=== PATIENT | female | born 1960 | race Caucasian/White ===

== ENCOUNTER 2020-01-19 18:13 | Emergency (ER) | payer MEDICAID ==
[~2020-01-19] VITALS: Ht 165.1 cm; Wt 90.7 kg
[~2020-01-19 18:13] MED LIST: ALPR1TAB7; AMLO5TAB15; HYDR-2595; METO25TA5; TEMA15CA
[2020-01-19] MEDS ORDERED: LIDOCAINE 1% (LOCAL ANESTH.) PF 5ml SDV ID ONE (18:45)
[2020-01-19] MEDS ORDERED: TETANUS-DIPTH-ACEL PERTUSSIS 0.5ML SYR Tdap IM ONE (18:45)
[2020-01-19 20:15] VITALS: BP 127/82
[2020-01-19] MEDS ORDERED: BACITRACIN TOP OINT 1 UD PKG TOP ONE ×2 (20:45→21:30)
[2020-01-19] MEDS ORDERED: cefTRIAXone W LIDOCAINE 1 GM IM IM ONE ×2 (21:00→21:15)
[2020-01-19] MEDS ORDERED: cefTRIAXone SOD 1,000 MG VL IM ONE (22:00)
== END 2020-01-19 22:55 | disposition home or self-care (01) ==
LOC: ER 18:13
DX: S61.213A Laceration without foreign body of left middle finger without damage to nail, initial encounter (principal); S01.81XA Laceration without foreign body of other part of head, initial encounter; J45.909 Unspecified asthma, uncomplicated; I10 Essential (primary) hypertension; E07.9 Disorder of thyroid, unspecified; Z88.2 Allergy status to sulfonamides; W54.0XXA Bitten by dog, initial encounter; Y93.89 Activity, other specified; Y92.89 Other specified places as the place of occurrence of the external cause; Y99.8 Other external cause status
CPT/HCPCS: 12001; 12011; 73130; 90471; 90715; 96372; 99284; J0696

== ENCOUNTER 2020-03-29 10:55 | Inpatient (IN) | payer OTHER, MEDICAID ==
[~2020-03-29] VITALS: Ht 170.2 cm; Wt 82.1 kg
[2020-03-29] MEDS ORDERED: IBUPROFEN 600 MG TAB PO ONE (11:15)
[2020-03-29] MEDS ORDERED: AZITHROMYCIN 500MG/ 250ML 250 ML IV ONE (11:15)
[2020-03-29] MEDS ORDERED: cefTRIAXone 1GM/50ML D5W 50 ML IV ONE (11:15)
[2020-03-29] MEDS ORDERED: methylPREDNISolone SOD SUCC 125 MG/2 ML VL IV ONE (11:15)
[2020-03-29] MEDS ORDERED: PROCHLORPERAZINE EDISYLATE 5 MG/ML 2ML VIAL IV ONE (11:30)
[2020-03-29 13:13] LABS: Basophils # (auto) 0 10 ^3/uL (0-0.2); Eosinophils # (auto) 0 10 ^3/uL (0-0.8); Lymphocytes # (auto) 0.2 10 ^3/uL (0.4-5.4); Monocytes # (auto) 0 10 ^3/uL (0-1.3); Neutrophils # (auto) 0.5 10 ^3/uL (1.6-8.6)
[2020-03-29 13:16] LABS: Basophils % (auto) 0.4 % (0.0-2.0); Eosinophils % (auto) 0.3 % (0.0-7.0); Hematocrit 34.7 % (36.0-46.0); Hemoglobin 11.9 g/dL (12.2-16.2); Lymphocytes % (auto) 28.1 % (10.0-50.0); Mean Corpuscular Hemoglobin 33.4 pg (28.0-32.0); Mean Corpuscular Hgb Conc. 34.4 g/dL (32.0-36.0); Mean Corpuscular Volume 97.1 fL (80.0-100.0); Monocytes % (auto) 1.2 % (0.0-12.0); Nucleated Red Blood Cells % 0.7 %; Platelet Count (auto) 132 10^3/uL (140-450); Red Blood Cells 3.57 10^6/uL (4.0-5.20); Red Cell Distribution Width 14.5 % (11.8-14.3)
[2020-03-29 13:29] LABS: White Blood Cell 0.7 10^3/uL (4.4-10.8)
[2020-03-29 13:49] LABS: Potassium 3.6 mmol/L (3.5-5.1)
[2020-03-29 13:58] LABS: Albumin 3.2 g/dL (3.4-5.0); BUN/Creatinine Ratio 14.3; Bilirubin, Total 1.7 mg/dL (0.2-1.0); Total Protein 6.5 g/dL (6.4-8.2)
[2020-03-29 14:14] LABS: CRP High Sensitivity 9.37 mg/dL (< 0.3)
[2020-03-29] MEDS ORDERED: FUROSEMIDE 40 MG/4 ML VIAL IV ONE (14:30)
[2020-03-29] MEDS: NOREPINEPHRINE 8 MG/250ML KIT 250 ML IV SCH (14:50)
[2020-03-29 15:08] LABS: Lactic Acid w/Reflex 3.7 mmol/L (0.4-2.0)
[2020-03-29] MEDS ORDERED: ATORVASTATIN 20 MG TAB PO ONE (20:30)
[2020-03-29 21:17] LABS: Hematocrit 33.5 % (36.0-46.0); Hemoglobin 11.4 g/dL (12.2-16.2); Mean Corpuscular Hemoglobin 32.8 pg (28.0-32.0); Mean Corpuscular Hgb Conc. 33.9 g/dL (32.0-36.0); Mean Corpuscular Volume 96.8 fL (80.0-100.0); Platelet Count (auto) 161 10^3/uL (140-450); Red Blood Cells 3.46 10^6/uL (4.0-5.20); Red Cell Distribution Width 14.7 % (11.8-14.3); White Blood Cell 12.7 10^3/uL (4.4-10.8)
[2020-03-29 21:19] LABS: Basophils % (manual) 0 (0.0-2.0); Blast Cells 0; Eosinophils % (manual) 0 (0-7); Metamyelocytes % 0; Myelocytes % 0; Promyelocytes % 0; Reactive Lymphocytes 0
[2020-03-29 21:37] LABS: Lactic Acid w/Reflex 4.4 mmol/L (0.4-2.0)
[2020-03-29 21:44] LABS: Cholesterol 96 mg/dL (< 200)
[2020-03-29 21:47] LABS: HDL Cholesterol 75 mg/dL (40-59); LDL Cholesterol 25 mg/dL (< 100); Triglycerides 103 mg/dL (< 150)
[2020-03-29 22:20] LABS: Band Neutrophils % (manual) 30; Lymphocytes % (manual) 7 (10.0-50.0); Monocytes % (manual) 5 (0-12)
[2020-03-29] MEDS: methylPREDNISolone SOD SUCC 40 MG/ML VL IV SCH (23:19)
[2020-03-29] MEDS: ALPRAZolam 0.5 MG TAB PO PRN (23:20)
[2020-03-29] MEDS: SODIUM CHLORIDE 0.9% 1,000 ML IV SCH (23:20)
[2020-03-29 23:37] LABS: Urine Bacteria NONE SEEN /hpf (None Seen); Urine Blood Negative /uL (Negative); Urine Specific Gravity 1.005 (1.001-1.035); Urine WBC 1 /hpf (0 - 5)
[2020-03-30] VITALS (41 sets, daily range): BP systolic 79–135; BP diastolic 48–89
[2020-03-30] MEDS ORDERED: ALBUTEROL SULF 2.5 MG/0.5ML(0.5%) NEB SOLN NEB ONE
[2020-03-30] MEDS ORDERED: HYDROcodone-ACET 5/325MG TAB PO PRN (01:00)
[2020-03-30] MEDS ORDERED: NITROGLYCERIN 0.4 MG SL TAB SL PRN (01:00)
[2020-03-30] MEDS ORDERED: MORPHINE SULF INJ 2 MG/ML SYRINGE 1ML IV PRN ×2 (01:00)
[2020-03-30] MEDS ORDERED: ENOXAPARIN SOD 80 MG/0.8ML SYRINGE SC ONE (01:30)
[2020-03-30] MEDS: ONDANSETRON HCL 4 MG/2 ML VIAL IV PRN ×2 (01:50→06:50)
[2020-03-30 06:08] LABS: Hematocrit 32.7 % (36.0-46.0); Mean Corpuscular Hemoglobin 32.7 pg (28.0-32.0); Mean Corpuscular Hgb Conc. 33.8 g/dL (32.0-36.0); Platelet Count (auto) 149 10^3/uL (140-450); Red Blood Cells 3.37 10^6/uL (4.0-5.20); Red Cell Distribution Width 14.4 % (11.8-14.3); White Blood Cell 17.6 10^3/uL (4.4-10.8)
[2020-03-30 06:12] LABS: Basophils % (manual) 0 (0.0-2.0); Blast Cells 0; Eosinophils % (manual) 0 (0-7); Metamyelocytes % 0; Promyelocytes % 0; Reactive Lymphocytes 0
[2020-03-30 06:32] LABS: Albumin 2.8 g/dL (3.4-5.0); Calcium 7.8 mg/dL (8.5-10.1); Potassium 3.9 mmol/L (3.5-5.1)
[2020-03-30 06:34] LABS: BUN/Creatinine Ratio 17.4
[2020-03-30 06:37] LABS: Bilirubin, Total 0.6 mg/dL (0.2-1.0); Total Protein 6.2 g/dL (6.4-8.2)
[2020-03-30] MEDS: methylPREDNISolone SOD SUCC 40 MG/ML VL IV SCH ×3 (06:52→21:06)
[2020-03-30] MEDS: SODIUM CHLORIDE 0.9% 1,000 ML IV SCH ×3 (08:25→21:06)
[2020-03-30] MEDS: cefTRIAXone 1GM/50ML D5W 50 ML IV SCH ×2 (08:34→08:43)
[2020-03-30] MEDS: ACETAMINOPHEN 325 MG TAB PO PRN ×2 (09:05→18:07)
[2020-03-30] MEDS ORDERED: ENOXAPARIN SOD 80 MG/0.8ML SYRINGE SC SCH (10:00)
[2020-03-30] MEDS: AZITHROMYCIN 500MG/ 250ML 250 ML IV SCH (10:03)
[2020-03-30] MEDS: HYDROmorphone HCL 2 MG/ML VL IV PRN ×3 (10:05→21:07)
[2020-03-30] MEDS: PANTOPRAZOLE 40 MG TAB PO SCH ×2 (10:06→10:09)
--- NOTE | 2020-03-30 11:37 | NUR ---
ASSUME CARE PATIENT ALERT AND ORIENTED X4. PATIENT COMPLAING OF HEADACHE WHICH SHE WAS MEDICATED WITH TYLENOL PO WITH GOOD RELIEF. ALSO PATIENT COMPLAINED OF GENERALIZED PAIN INCLUDING THE BACK AND FRONT IN WHICH SHE WAS MEDICATED WITH DILAUDID ORDERED BY DR NELSON. IV LEVOPHED IS TITRATED TO HAVE SBP OP OVER 90. OXYGEN INTACT AT 2 LITERS VIA NC SATURATING 94%. DR WYNN CAME AND SAW THE PATIENT WELL DR NELSON. TELEPHONE CALL FOR THE UROLOGIST IN WHICH HE WAS GIVEN INFORMATIONS.
[2020-03-30 12:18] LABS: Lymphocytes % (manual) 4 (10.0-50.0); Monocytes % (manual) 3 (0-12); Myelocytes % 1
[2020-03-30 12:19] LABS: Band Neutrophils % (manual) 24
[2020-03-30] MEDS: NOREPINEPHRINE 8 MG/250ML KIT 250 ML IV SCH (14:30)
--- NOTE | 2020-03-30 18:25 | NUR ---
PATIENT C/O OF HEADACHE WHICH PATIENT GETS RELIEF FROM TYLENOL.
--- NOTE | 2020-03-30 19:45 | NUR ---
OPENING NOTE REPORT RECEIVED FROM RADHA RN. PATIENT IS A/OX4 CONNECTED TO [employer] BEDSIDE MONITORS. HEART RATE IN 80'S, BP IN LOW 100'S AT THIS TIME. PATIENT IS ON 2L NASAL CANNULA SPO2 96%, NO SOB OR RESPIRATORY DISTRESS NOTED. LAST BM TODAY 03/30/20 PER PATIENT. NO DIFFICULTIES WITH VOIDING. RIGHT TRIPLE LUMEN IJ IN PLACE RUNNING NS AT 100ML/HR. RIGHT HAND 22G PERIPHERAL IV IN PLACE. SKIN ALL INTACT, PATIENT ABLE TO TURN AND REPOSITION SELF WITHOUT DIFFICULTIES. POC DISCUSSED WITH PATIENT, ALL QUESTIONS ANSWERED.
--- NOTE | 2020-03-30 21:32 | NUR ---
REPORT CALLED AND GAVE REPORT TO RN RHODA GONZALEZ GIVEN/ALL QUESTIONS ANSWERED. PATIENT WILL BE TRANSFERRED TO ROOM 249A, TELE UNIT. AWAITING TELE BOX BEFORE TRANSFER.
--- NOTE | 2020-03-30 21:38 | NUR ---
TRANSFER TO FLOOR PATIENT TAKEN TO TELE FLOOR VIA WHEELCHAIR. PATIENT TAKEN TO ROOM 249A WITH ALL PERSONAL BELONGINGS AND TELE BOX #1. NO DISTRESS AT TIME OF TRANSFER. JAQUELIN DUONG RECEIVED THE PATIENT.
[2020-03-30] MEDS: BUDESONIDE (INHALATION) 0.5 MG/2 ML NEB NEB SCH (22:00)
--- NOTE | 2020-03-30 22:00 | NUR ---
RECEIVED REPORT AND ASSUMED CARE OF PT AT THIS TIME. PT TRANSFERRED TO ROOM 249-A , TELE STATUS, FROM ICU IN STABLE COND. PT ORIENTED TO ROOM AND PROCEDURES AND POC DISCUSSED WITH PT. PT VERBALIZES UNDERSTANDING. BED IS LOW, WHEELS ARE LOCKED, SIDE UP X2, AND CALL LIGHT IS WITH IN REACH.
[2020-03-30] MEDS: ALPRAZolam 0.5 MG TAB PO PRN (22:58)
[2020-03-31 04:01] VITALS: BP 101/59
[2020-03-31] MEDS: HYDROmorphone HCL 2 MG/ML VL IV PRN ×3 (04:53→22:26)
[2020-03-31 05:40] VITALS: BP 133/85
[2020-03-31] MEDS: ALBUTEROL SULF 2.5 MG/0.5ML(0.5%) NEB SOLN NEB PRN ×2 (06:35→19:03)
[2020-03-31] MEDS: BUDESONIDE (INHALATION) 0.5 MG/2 ML NEB NEB SCH ×2 (06:35→19:03)
[2020-03-31 06:41] LABS: Hematocrit 29.4 % (36.0-46.0); Hemoglobin 9.8 g/dL (12.2-16.2); Mean Corpuscular Hemoglobin 32.5 pg (28.0-32.0); Mean Corpuscular Hgb Conc. 33.3 g/dL (32.0-36.0); Mean Corpuscular Volume 97.7 fL (80.0-100.0); Platelet Count (auto) 102 10^3/uL (140-450); Red Blood Cells 3.01 10^6/uL (4.0-5.20); Red Cell Distribution Width 14.6 % (11.8-14.3); White Blood Cell 12.6 10^3/uL (4.4-10.8)
[2020-03-31] MEDS: methylPREDNISolone SOD SUCC 40 MG/ML VL IV SCH ×3 (06:42→21:53)
[2020-03-31 06:55] LABS: Albumin 2.6 g/dL (3.4-5.0); BUN/Creatinine Ratio 25.9; Calcium 7.7 mg/dL (8.5-10.1); Potassium 4.3 mmol/L (3.5-5.1)
[2020-03-31 06:57] LABS: Bilirubin, Total 0.4 mg/dL (0.2-1.0); Total Protein 6.2 g/dL (6.4-8.2)
[2020-03-31 07:09] LABS: Basophils % (manual) 0 (0.0-2.0); Blast Cells 0; Eosinophils % (manual) 0 (0-7); Metamyelocytes % 0; Promyelocytes % 0; Reactive Lymphocytes 0
--- NOTE | 2020-03-31 07:30 | NUR ---
Opening Shift Note Assumed patient care from NOC RN. Patient currently laying on right side, respirations even and unlabored. Will continue to monitor q1hr and PRN. Call light within reach, safety precautions are in place.
[2020-03-31 09:00] VITALS: BP 128/82
[2020-03-31] MEDS: cefTRIAXone 1GM/50ML D5W 50 ML IV SCH (09:11)
[2020-03-31] MEDS: ENOXAPARIN SOD 80 MG/0.8ML SYRINGE SC SCH ×2 (09:12→21:53)
[2020-03-31] MEDS: AZITHROMYCIN 500MG/ 250ML 250 ML IV SCH (10:44)
[2020-03-31 12:26] LABS: Band Neutrophils % (manual) 22; Lymphocytes % (manual) 2 (10.0-50.0); Monocytes % (manual) 3 (0-12); Myelocytes % 2
[2020-03-31 13:00] VITALS: BP 122/75
[2020-03-31] MEDS: SODIUM CHLORIDE 0.9% 1,000 ML IV SCH ×2 (13:11→22:00)
--- NOTE | 2020-03-31 13:30 | NUR ---
Room Air Patient currently on room air. Respirations even and unlabored RR 18 SpO2 95%. No signs of distress; will continue to monitor q1hr and PRN. Safety precautions in place, call light within reach.
--- NOTE | 2020-03-31 13:50 | NUR ---
at Bedside Dr. Barragan at bedside discussing plan of care with patient.
[2020-03-31 17:00] VITALS: BP 143/96
--- NOTE | 2020-03-31 17:56 | NUR ---
MD Called Spoke with Dr. Peterson regarding patient complaint of diarrhea and allergies. Patient is complaining of sneezing and runny nose. New orders received, will carry out.
[2020-03-31] MEDS ORDERED: LORATADINE 10 MG TAB PO ONE (18:00)
[2020-03-31] MEDS ORDERED: PROMETHAZINE HCL 25 MG/ML 1ML IV PRN (18:00)
--- NOTE | 2020-03-31 18:13 | NUR ---
Dressing Change Dressing change to right IJ 3lumen using sterile technique. Addendum: 03/31/20 at 1817 by BALA ALONZO RN RN IV is patent: flushes easily, blood return noted on aspiration.
--- NOTE | 2020-03-31 18:53 | NUR ---
at Bedside Dr. Lima at bedside discussing plan of care with patient.
[2020-03-31] MEDS: ALPRAZolam 0.5 MG TAB PO PRN (19:40)
--- NOTE | 2020-03-31 19:45 | NUR ---
Opening Shift Note Assumed care of patient, awake and alert, oriented x 4, follows direction. On room air with even and unlabored respirations. No S/S of distress/SOB or pain. Patient ambulates to bathroom with steady gait. Patient denies any problems voiding. IV intact and patent infusing IVF per orders. Bed in low locked position with side rails up x 2 and call light within reach. Instructed on POC and to call for assist PRN, will continue to monitor for changes Q1hr and PRN.
[2020-03-31 23:44] VITALS: BP 135/84
[2020-04-01 05:39] VITALS: BP 134/83
[2020-04-01] MEDS: methylPREDNISolone SOD SUCC 40 MG/ML VL IV SCH (06:02)
[2020-04-01] MEDS: SODIUM CHLORIDE 0.9% 1,000 ML IV SCH ×2 (06:03→18:00)
[2020-04-01] MEDS: ALBUTEROL SULF 2.5 MG/0.5ML(0.5%) NEB SOLN NEB PRN (06:32)
[2020-04-01] MEDS: BUDESONIDE (INHALATION) 0.5 MG/2 ML NEB NEB SCH ×2 (06:33→18:35)
[2020-04-01 06:40] LABS: Hematocrit 30.1 % (36.0-46.0); Mean Corpuscular Hemoglobin 32.3 pg (28.0-32.0); Mean Corpuscular Hgb Conc. 33.4 g/dL (32.0-36.0); Mean Corpuscular Volume 96.9 fL (80.0-100.0); Platelet Count (auto) 95 10^3/uL (140-450); Red Cell Distribution Width 14.6 % (11.8-14.3); White Blood Cell 14.1 10^3/uL (4.4-10.8)
--- NOTE | 2020-04-01 06:56 | NUR ---
Closing Note status unchanged. patient resting in bed on room air with even and unlabored respirations, no s/s of distress or SOB. Bed in lowest locked position with side rails up x 2 and call light within reach.
[2020-04-01 07:02] LABS: Band Neutrophils % (manual) 0; Basophils % (manual) 0 (0.0-2.0); Blast Cells 0; Eosinophils % (manual) 0 (0-7); Metamyelocytes % 0; Myelocytes % 0; Promyelocytes % 0; Reactive Lymphocytes 0
[2020-04-01 07:03] LABS: Albumin 2.4 g/dL (3.4-5.0); Calcium 8.3 mg/dL (8.5-10.1); Potassium 4.4 mmol/L (3.5-5.1)
[2020-04-01 07:08] LABS: BUN/Creatinine Ratio 23.6; Bilirubin, Total 0.3 mg/dL (0.2-1.0); Total Protein 6.1 g/dL (6.4-8.2)
--- NOTE | 2020-04-01 07:15 | NUR ---
Closing Shift Note Endorsed patient care to NOC RN. Patient currently sitting up in bed, AOx4. Respirations even and unlabored. No signs of distress at this time. Safety precautions are in place.
--- NOTE | 2020-04-01 07:30 | NUR ---
Opening Shift Note Assumed patient care from NOC RN. Patient currently laying on left side with eyes closed, respirations are even and unlabored. Safety precautions in place. Call light within reach. Will continue to monitor.
[2020-04-01 07:42] LABS: Lymphocytes % (manual) 2 (10.0-50.0); Monocytes % (manual) 3 (0-12)
--- NOTE | 2020-04-01 08:47 | NUR ---
NM Called NM regarding VQ and Renal Scan. Per Paul, patient will have Renal Scan at approximately 10-11. Patient does not need to be kept NPO at this time.
[2020-04-01 09:00] VITALS: BP 144/82
[2020-04-01] MEDS: cefTRIAXone 1GM/50ML D5W 50 ML IV SCH (09:16)
[2020-04-01] MEDS: PANTOPRAZOLE 40 MG TAB PO SCH (09:17)
[2020-04-01] MEDS ORDERED: LORATADINE 10 MG TAB PO SCH (10:00)
[2020-04-01] MEDS: ENOXAPARIN SOD 80 MG/0.8ML SYRINGE SC SCH (10:00)
[2020-04-01 10:11] LABS: Hepatitis B Surface Antibody Negative
[2020-04-01] MEDS: HYDROmorphone HCL 2 MG/ML VL IV PRN ×3 (10:16→22:36)
[2020-04-01] MEDS: AZITHROMYCIN 500MG/ 250ML 250 ML IV SCH (10:17)
[2020-04-01 10:44] LABS: Hepatitis A Total Antibody Negative
--- NOTE | 2020-04-01 11:15 | NUR ---
at Bedside Dr. Bowie at bedside discussing plan of care with patient. Patient to undergo renal scan per urology. New orders received. MD aware of medication held, see EMAR.
--- NOTE | 2020-04-01 11:21 | NUR ---
TIFFANY Spoke with TIFFANY Miller. Per CLEMENTE Miller scan completed prior to cancellation. Will attempt renal scan later today, if unable, will complete renal scan tomorrow. Dr. Azeb whitman.
[2020-04-01] MEDS: IPRATROPIUM BROM 0.5 MG/2.5ML INH SOL NEB SCH ×2 (11:51→18:35)
[2020-04-01] MEDS: ALBUTEROL SULF 2.5 MG/0.5ML(0.5%) NEB SOLN NEB SCH ×2 (11:51→18:35)
[2020-04-01 13:00] VITALS: BP 160/94
--- NOTE | 2020-04-01 13:42 | NUR ---
1340 04/01/20 I faxed transfer order and Notice Regarding Post Stabilization to [facility]-documents scanned into [employer]. I faxed today's MD progress notes to [facility].
[2020-04-01 13:51] LABS: Hepatitis B Core Total AB Negative; Hepatitis B Surface Antigen Negative (Negative); Hepatitis C Antibody Negative (Negative)
--- NOTE | 2020-04-01 13:54 | NUR ---
1350 04/01/20 I received a call from [employer] Technical Advisor Anu [phone]-she provided me with inpatient authorization number [id number] for 48 hours from admission. I made her aware that I had faxed a transfer order and today's MD progress notes-she said she will start working on the transfer.
--- NOTE | 2020-04-01 15:00 | NUR ---
Ronald Received call from Anu. Adam Brennan, currently working on obtaining bed for transfer. Per Anu, call with any questions [phone]
[2020-04-01 17:00] VITALS: BP 137/91
--- NOTE | 2020-04-01 20:00 | NUR ---
[facility] Transfer patient going to room 1202. phone number for report [phone]. 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 spoke with lorri ga [phone], accepting MD Kirk Senior.
--- NOTE | 2020-04-01 20:05 | NUR ---
Informed patient of transfer patient verbalized understanding, she states she will call her mother Meaghan to inform her of transfer.
--- NOTE | 2020-04-01 20:42 | NUR ---
Called [facility]. Report given to Isis HAMMER.
[2020-04-01] MEDS: ALPRAZolam 0.5 MG TAB PO PRN (20:57)
--- NOTE | 2020-04-01 22:35 | NUR ---
Called Anu Cardenas CM, patient refusing to go to [facility] per Anu GUERRIER, no bed available in [place], as of today the patient will be financially responsible for the hospital bill if she refuses. Spoke with patient regarding this matter, patient agrees to go to [facility]. [facility] at bedside for transportation.
--- NOTE | 2020-04-01 22:50 | NUR ---
Pt being trans to another hosp Order obtained for transfer of BREEZY PRESLEY to [facility]. Report called/given to LAURA HAMMER. Report given to EMS transport team. Medication reconciliation form completed and copy given to patient. Transported via [facility] along with copied chart and imaging films/disk and all personal belongings. No distress noted on time of departure. Family notified of destination and room number, verbalized understanding. NOTE:
== END 2020-04-01 22:50 | disposition short-term general hospital (02) | DRG 871 ==
LOC: ER 10:55 → EDBD 10:55 → TELE 10:56 → ICU WEST 03-30 03:00 → TELE-EAST 03-30 19:55
PROVIDERS: ADMIT Internal Medicine; ATTEND Internal Medicine
PROC: 02HV33Z Insertion of Infusion Device into Superior Vena Cava, Percutaneous Approach (ICD-10-PCS; principal; 2020-03-29)
PROC: 4A143B0 Monitoring of Venous Pressure, Central, Percutaneous Approach (ICD-10-PCS; 2020-03-29)
DX: A41.9 Sepsis, unspecified organism (principal); R65.21 Severe sepsis with septic shock; I50.33 Acute on chronic diastolic (congestive) heart failure; J96.01 Acute respiratory failure with hypoxia; N17.0 Acute kidney failure with tubular necrosis; I21.4 Non-ST elevation (NSTEMI) myocardial infarction; D61.818 Other pancytopenia; I13.0 Hypertensive heart and chronic kidney disease with heart failure and stage 1 through stage 4 chronic kidney disease, or unspecified chronic kidney disease; J98.11 Atelectasis; N13.6 Pyonephrosis; J45.901 Unspecified asthma with (acute) exacerbation; F41.9 Anxiety disorder, unspecified; N18.30 Chronic kidney disease, stage 3 unspecified; J44.9 Chronic obstructive pulmonary disease, unspecified; Z20.828 Contact with and (suspected) exposure to other viral communicable diseases; R19.5 Other fecal abnormalities; M54.5 Low back pain; F32.9 Major depressive disorder, single episode, unspecified; G89.29 Other chronic pain; Z91.5 Personal history of self-harm; Z83.3 Family history of diabetes mellitus; Z82.49 Family history of ischemic heart disease and other diseases of the circulatory system; Z80.51 Family history of malignant neoplasm of kidney; Z86.74 Personal history of sudden cardiac arrest; Z90.710 Acquired absence of both cervix and uterus; Z88.2 Allergy status to sulfonamides; Z90.49 Acquired absence of other specified parts of digestive tract; Z98.51 Tubal ligation status
CPT/HCPCS: 36415; 71045; 71250; 74176; 76700; 78582; 80053; 80061; 81001; 82270; 82728; 83605; 83615; 84484; 85007; 85025; 85027; 85379; 86141; 86704; 86706; 86708; 86803; 87040; 87045; 87081; 87086; 87177; 87340; 87426; 87427; 93306; 93970; 94640; 96365; 96368; 96372; 96375; 96376; 99291; G0378; J0696; J2405

== ENCOUNTER 2020-04-06 15:33 | Emergency (ER) | payer OTHER, MEDICAID ==
[~2020-04-06] VITALS: Ht 167.6 cm; Wt 81.6 kg
[2020-04-06 17:50] LABS: Urine Amorphous Crystal FEW /hpf (None Seen); Urine Bacteria MOD /hpf (None Seen); Urine Blood 3+ /uL (Negative); Urine Specific Gravity 1.017 (1.001-1.035); Urine WBC 1282 /hpf (0 - 5); Urine WBC Clumps PRESENT /hpf (None Seen)
[2020-04-06 18:13] LABS: Alcohol, Urine < 3.0 mg/dL (0-10); Amphetamine Screen, Urine NEGATIVE (NEGATIVE); Barbiturate Scree,Urine NEGATIVE (NEGATIVE); Benzodiazephine Screen, Urine NEGATIVE (NEGATIVE); Cannabinoid Screen, Urine NEGATIVE (NEGATIVE); Cocaine Screen, Urine NEGATIVE (NEGATIVE); Opiate Scree,Urine NEGATIVE (NEGATIVE); Phencyclidine Screen, Urine NEGATIVE (NEGATIVE)
[2020-04-06 18:29] LABS: Hematocrit 31.3 % (36.0-46.0); Hemoglobin 10.8 g/dL (12.2-16.2); Mean Corpuscular Hemoglobin 33.1 pg (28.0-32.0); Mean Corpuscular Hgb Conc. 34.5 g/dL (32.0-36.0); Mean Corpuscular Volume 96.2 fL (80.0-100.0); Platelet Count (auto) 328 10^3/uL (140-450); Red Blood Cells 3.25 10^6/uL (4.0-5.20); Red Cell Distribution Width 14.9 % (11.8-14.3); White Blood Cell 7.4 10^3/uL (4.4-10.8)
[2020-04-06 18:42] LABS: Basophils % (manual) 0 (0.0-2.0); Blast Cells 0; Eosinophils % (manual) 0 (0-7); Metamyelocytes % 0; Myelocytes % 0; Promyelocytes % 0; Reactive Lymphocytes 0
[2020-04-06 18:48] LABS: INR 0.88 (0.9-1.15); Partial Thromboplastin Time 24.8 sec (23.0-31.2)
[2020-04-06 18:49] LABS: Albumin 2.5 g/dL (3.4-5.0); Calcium 8.4 mg/dL (8.5-10.1)
[2020-04-06 18:53] LABS: BUN/Creatinine Ratio 17.4; Bilirubin, Total 0.3 mg/dL (0.2-1.0)
[2020-04-06] MEDS ORDERED: CIPROFLOXACIN 400MG/200ML 200 ML IV ONE (19:15)
[2020-04-06] MEDS ORDERED: SODIUM CHLORIDE 0.9% 1,000 ML IV ONE (19:15)
[2020-04-06] MEDS ORDERED: PANTOPRAZOLE 40 MG/10 ML VIAL INJ IV ONE (19:15)
[2020-04-06] MEDS ORDERED: cefTRIAXone 1GM/50ML D5W 50 ML IV ONE (19:15)
[2020-04-06 20:01] LABS: Band Neutrophils % (manual) 1; Lymphocytes % (manual) 12 (10.0-50.0); Monocytes % (manual) 5 (0-12)
[2020-04-06] MEDS ORDERED: ACETAMINOPHEN/CODEINE#3 (300/30mg) TAB PO ONE (20:15)
[2020-04-06] MEDS ORDERED: HYDROcodone-ACET 10/325MG TAB PO ONE (20:30)
[2020-04-06 21:41] VITALS: BP 111/64
== END 2020-04-06 21:47 | disposition home or self-care (01) ==
LOC: ER 15:36
DX: N39.0 Urinary tract infection, site not specified (principal); E86.0 Dehydration; N13.30 Unspecified hydronephrosis; I12.9 Hypertensive chronic kidney disease with stage 1 through stage 4 chronic kidney disease, or unspecified chronic kidney disease; N18.30 Chronic kidney disease, stage 3 unspecified; D63.1 Anemia in chronic kidney disease; Z90.49 Acquired absence of other specified parts of digestive tract; Z90.710 Acquired absence of both cervix and uterus
CPT/HCPCS: 36415; 74176; 80053; 80307; 81001; 83605; 84484; 85007; 85027; 85610; 85730; 96365; 96368; 96375; 99284; C9113; J0696; J0744; J7030; 96361

== ENCOUNTER 2020-12-17 07:11 | Emergency (ER) | payer MEDICAID, OTHER ==
[~2020-12-17] VITALS: Ht 167.6 cm; Wt 77.1 kg
[~2020-12-17 07:11] MED LIST changes: +AMLO-489; -AMLO5TAB15
[2020-12-17 07:30] VITALS: BP 123/79
== END 2020-12-17 07:30 | disposition left against medical advice (07) ==
LOC: EDBD 07:11 → ER 07:25
DX: G89.4 Chronic pain syndrome (principal); F41.9 Anxiety disorder, unspecified; J45.909 Unspecified asthma, uncomplicated; I12.9 Hypertensive chronic kidney disease with stage 1 through stage 4 chronic kidney disease, or unspecified chronic kidney disease; N18.9 Chronic kidney disease, unspecified; Z86.2 Personal history of diseases of the blood and blood-forming organs and certain disorders involving the immune mechanism; Z90.89 Acquired absence of other organs; Z90.49 Acquired absence of other specified parts of digestive tract; Z90.710 Acquired absence of both cervix and uterus; Z79.899 Other long term (current) drug therapy; Z88.2 Allergy status to sulfonamides

== ENCOUNTER 2023-11-23 10:21 | Inpatient (IN) | payer OTHER, MEDICAID ==
[~2023-11-23] VITALS: Ht 165.1 cm; Wt 80.0 kg
[~2023-11-23 10:21] MED LIST changes: -AMLO-489; +AMLO1TAB22; +ENOXAPARIN SOD 80 MG/0.8ML SYRINGE SC SCH
[2023-11-23] MEDS: NALOXONE HCL 1MG/ML 2ML SYRINGE IV ONE (10:30)
[2023-11-23] MEDS: SODIUM CHLORIDE 0.9% 1,000 ML IV ONE (11:00)
[2023-11-23 11:17] LABS: Basophils # (auto) 0.1 10 ^3/uL (0-0.2); Basophils % (auto) 0.5 % (0.0-2.0); Eosinophils # (auto) 0 10 ^3/uL (0-0.8); Hematocrit 36.8 % (36.0-46.0); Hemoglobin 12.2 g/dL (12.2-16.2); Lymphocytes # (auto) 0.9 10 ^3/uL (0.4-5.4); Lymphocytes % (auto) 7.4 % (10.0-50.0); Mean Corpuscular Hemoglobin 30.5 pg (28.0-32.0); Mean Corpuscular Hgb Conc. 33.2 g/dL (32.0-36.0); Mean Corpuscular Volume 91.9 fL (80.0-100.0); Monocytes # (auto) 0.4 10 ^3/uL (0-1.3); Monocytes % (auto) 3.3 % (0.0-12.0); Neutrophils # (auto) 11.1 10 ^3/uL (1.6-8.6); Neutrophils % (auto) 88.8 % (37.0-80.0); Nucleated Red Blood Cells % 0.1 %; Red Blood Cells 4.01 10^6/uL (4.0-5.20); Red Cell Distribution Width 14.1 % (11.8-14.3); White Blood Cell 12.5 10^3/uL (4.4-10.8)
[2023-11-23 11:18] VITALS: PULSE 81; RESP 16; O2SAT 95
[2023-11-23 11:35] LABS: Alanine Aminotransferase 24 U/L (7-40); Albumin 4.8 g/dL (3.2-4.8); Alkaline Phosphatase 115 U/L (46-116); Anion Gap 9 (5-15); Aspartate Aminotransferase 17 U/L (13-40); Bilirubin, Total 0.7 mg/dL (0.2-1.0); Blood Alcohol < 3.0 mg/dL (<10); Blood Urea Nitrogen 18 mg/dL (9-23); Calcium 10.1 mg/dL (8.5-10.1); Carbon Dioxide 24 mmol/L (20-30); Chloride 111 mmol/L (98-107); Creatine Kinase IFCC 91 U/L (34-145); Glucose 179 mg/dL (74-106); Potassium 3.9 mmol/L (3.5-5.1); Sodium 144 mmol/L (136-145); Total Protein 7.3 g/dL (5.7-8.2)
[2023-11-23 11:36] LABS: Acetaminophen < 2.0 UG/ML (10.0-20.0)
[2023-11-23 11:40] LABS: Salicylate < 3.0 mg/dL (2.8-20.0)
[2023-11-23 12:25] LABS: Lipase 20 U/L (12-53)
[2023-11-23] MEDS: ASPirin 325 MG TAB PO ONE (13:36)
[2023-11-23] MEDS ORDERED: ONDANSETRON HCL 4 MG/2 ML VIAL IV PRN (14:00)
[2023-11-23] MEDS ORDERED: hydrALAZINE HCL 20 MG/ML VL IV PRN (14:00)
[2023-11-23] MEDS: SODIUM CHLOR 0.9% PF (SALINE LOCK) 10ML VIAL/SYR IV SCH (14:00)
[2023-11-23] MEDS ORDERED: DOCUSATE SOD 100 MG CAP PO PRN (14:00)
[2023-11-23] MEDS ORDERED: MORPHINE SULFATE INJ 2 MG/ml SYRG IV PRN (14:30)
[2023-11-23] MEDS ORDERED: NITROGLYCERIN 0.4 MG SL TAB SL PRN (14:30)
[2023-11-23] MEDS: cefTRIAXone 1GM/50ML D5W 50 ML IV ONE (14:33)
[2023-11-23] MEDS: FUROSEMIDE 40 MG/4 ML VIAL IV ONE (14:34)
[2023-11-23] MEDS: HYDROcodone-ACET 5/325MG TAB PO PRN (14:47)
[2023-11-23 15:45] LABS: Urine Bacteria MOD /hpf (None Seen); Urine Blood TRACE /uL (Negative); Urine Clarity Turbid (Clear); Urine Color Yellow (Yellow); Urine Mucus FEW (None Seen); Urine Protein, UAD 1+ (Negative); Urine Urobilinogen Normal (Negative); Urine WBC 86 /hpf (0 - 5)
[2023-11-23 16:15] LABS: Amphetamine Screen, Urine Neg (NEGATIVE); Barbiturate Scree,Urine Neg (NEGATIVE); Benzodiazephine Screen, Urine Neg (NEGATIVE); Cannabinoid Screen, Urine Neg (NEGATIVE); Cocaine Screen, Urine Neg (NEGATIVE); Opiate Scree,Urine Neg (NEGATIVE); Phencyclidine Screen, Urine Neg (NEGATIVE)
[2023-11-23] MEDS: ENOXAPARIN SOD 80 MG/0.8ML SYRINGE SC SCH (18:27)
[2023-11-23 19:30] VITALS: PULSE 83; RESP 20; O2SAT 95
[2023-11-23] MEDS: LORazepam 2MG/ML-1ML VIAL IV PRN (20:45)
[2023-11-23] MEDS: CARVEDILOL 12.5 MG TAB PO SCH (21:59)
[2023-11-23] MEDS: ATORVASTATIN 20 MG TAB PO SCH (22:00)
[2023-11-23 22:53] VITALS: BP_SYST 143; BP_SYST 150; BP_DIAS 78; BP_DIAS 89; PULSE 84; PULSE 94; RESP 17; RESP 18; TEMP 97.8; TEMP 98.7; O2SAT 94
[2023-11-23 23:15] VITALS: BP 150/85; PULSE 88; RESP 17; TEMP 98.1; O2SAT 96
[2023-11-24] VITALS (8 sets, daily range): BP systolic 128–161; BP diastolic 79–93; PULSE 56–92; RESP 12–20; TEMP 98–98.5; O2SAT 93–98
[2023-11-24 05:37] LABS: Basophils # (auto) 0 10 ^3/uL (0-0.2); Basophils % (auto) 0.4 % (0.0-2.0); Eosinophils # (auto) 0 10 ^3/uL (0-0.8); Eosinophils % (auto) 0.1 % (0.0-7.0); Hematocrit 32.9 % (36.0-46.0); Lymphocytes # (auto) 1.5 10 ^3/uL (0.4-5.4); Lymphocytes % (auto) 17.7 % (10.0-50.0); Mean Corpuscular Hemoglobin 30.9 pg (28.0-32.0); Mean Corpuscular Hgb Conc. 33.5 g/dL (32.0-36.0); Mean Corpuscular Volume 92.1 fL (80.0-100.0); Monocytes # (auto) 0.6 10 ^3/uL (0-1.3); Neutrophils # (auto) 6.2 10 ^3/uL (1.6-8.6); Neutrophils % (auto) 74.8 % (37.0-80.0); Nucleated Red Blood Cells % 0.1 %; Red Blood Cells 3.58 10^6/uL (4.0-5.20); Red Cell Distribution Width 13.5 % (11.8-14.3); White Blood Cell 8.3 10^3/uL (4.4-10.8)
[2023-11-24 05:58] LABS: Alanine Aminotransferase 19 U/L (7-40); Alkaline Phosphatase 90 U/L (46-116); Anion Gap 10 (5-15); Aspartate Aminotransferase 18 U/L (13-40); Bilirubin, Total 0.6 mg/dL (0.2-1.0); Blood Urea Nitrogen 15 mg/dL (9-23); Calcium 9.8 mg/dL (8.7-10.4); Carbon Dioxide 24 mmol/L (20-30); Chloride 111 mmol/L (98-107); Glucose 125 mg/dL (74-106); Potassium 3.4 mmol/L (3.5-5.1); Sodium 145 mmol/L (136-145); Total Protein 6.3 g/dL (5.7-8.2)
[2023-11-24] MEDS: ENOXAPARIN SOD 80 MG/0.8ML SYRINGE SC SCH (06:00)
[2023-11-24] MEDS ORDERED: LISI10TA34 PO (08:47)
[2023-11-24] MEDS ORDERED: QUET50TA27 PO (08:47)
[2023-11-24] MEDS ORDERED: OXYC-963 (08:47)
[2023-11-24] MEDS ORDERED: LEVO25TA6 PO (08:47)
[2023-11-24] MEDS ORDERED: SERT-289 PO (08:47)
[2023-11-24] MEDS ORDERED: GABA-1250 PO (08:47)
[2023-11-24] MEDS ORDERED: OMEP-448 (08:47)
[2023-11-24] MEDS ORDERED: amLODIPine BESYLATE 5 MG TAB PO SCH (10:00)
[2023-11-24] MEDS: cefTRIAXone 1GM/50ML D5W 50 ML IV SCH (10:01)
[2023-11-24] MEDS: ASPirin 81 mg TAB PO SCH (10:01)
[2023-11-24] MEDS: NIFEdipine ER 30 MG TAB PO SCH (10:02)
[2023-11-24] MEDS: FUROSEMIDE 40 MG/4 ML VIAL IV SCH (10:03)
[2023-11-24] MEDS: POTASSIUM CHL 20MEQ/100ML 100 ML IV SCH (11:45)
[2023-11-24] MEDS: ACETAMINOPHEN 325 MG TAB PO PRN (12:06)
[2023-11-24] MEDS: OXYCODONE W/ ACETAMINOPHEN 5/325MG TABLET PO PRN (16:49)
[2023-11-24] MEDS: POTASSIUM CHL 20 Meq TABLET PO ONE (16:49)
[2023-11-24] MEDS: QUEtiapine FUMARATE 25 MG TAB PO SCH (22:16)
[2023-11-24] MEDS: GABAPENTIN 300 MG CAP PO SCH (22:18)
[2023-11-25] VITALS (8 sets, daily range): BP systolic 108–139; BP diastolic 65–86; PULSE 56–80; RESP 16–18; TEMP 97.8–98.7; O2SAT 93–98
[2023-11-25] MEDS: LEVOTHYROXINE SODIUM 25 MCG TAB PO SCH (06:10)
[2023-11-25 07:01] LABS: Chloride 105 mmol/L (98-107); Potassium 3.3 mmol/L (3.5-5.1); Sodium 140 mmol/L (136-145)
[2023-11-25 07:02] LABS: Anion Gap 9 (5-15); Calcium 9.2 mg/dL (8.5-10.1); Carbon Dioxide 26 mmol/L (20-30)
[2023-11-25 07:07] LABS: BUN/Creatinine Ratio 12.6 (10.0-20.0); Blood Urea Nitrogen 11 mg/dL (9-23); Glucose 107 mg/dL (74-106)
[2023-11-25 07:21] LABS: Basophils # (auto) 0 10 ^3/uL (0-0.2); Basophils % (auto) 0.7 % (0.0-2.0); Eosinophils # (auto) 0 10 ^3/uL (0-0.8); Eosinophils % (auto) 0.4 % (0.0-7.0); Hematocrit 33.2 % (36.0-46.0); Hemoglobin 11.1 g/dL (12.2-16.2); Lymphocytes # (auto) 2.1 10 ^3/uL (0.4-5.4); Lymphocytes % (auto) 35.4 % (10.0-50.0); Mean Corpuscular Hemoglobin 30.5 pg (28.0-32.0); Mean Corpuscular Hgb Conc. 33.4 g/dL (32.0-36.0); Mean Corpuscular Volume 91.3 fL (80.0-100.0); Monocytes # (auto) 0.5 10 ^3/uL (0-1.3); Monocytes % (auto) 8.1 % (0.0-12.0); Neutrophils # (auto) 3.3 10 ^3/uL (1.6-8.6); Neutrophils % (auto) 55.4 % (37.0-80.0); Nucleated Red Blood Cells % 0.1 %; Red Blood Cells 3.64 10^6/uL (4.0-5.20); Red Cell Distribution Width 13.3 % (11.8-14.3)
[2023-11-25] MEDS: ENOXAPARIN SOD 40 MG/0.4 ML SYRINGE SC SCH (09:10)
[2023-11-25] MEDS: SERTRALINE HCL 50 MG TAB PO SCH (09:11)
[2023-11-25] MEDS: POTASSIUM CHL 20 Meq TABLET PO ONE (10:16)
[2023-11-26 01:43] VITALS: BP 97/58; PULSE 54; RESP 17; TEMP 98.2; O2SAT 96
[2023-11-26 06:50] LABS: Basophils # (auto) 0.1 10 ^3/uL (0-0.2); Basophils % (auto) 1.3 % (0.0-2.0); Eosinophils # (auto) 0.1 10 ^3/uL (0-0.8); Eosinophils % (auto) 1.9 % (0.0-7.0); Hematocrit 39.7 % (36.0-46.0); Hemoglobin 13.4 g/dL (12.2-16.2); Lymphocytes # (auto) 2.5 10 ^3/uL (0.4-5.4); Lymphocytes % (auto) 43.5 % (10.0-50.0); Mean Corpuscular Hemoglobin 30.7 pg (28.0-32.0); Mean Corpuscular Hgb Conc. 33.6 g/dL (32.0-36.0); Mean Corpuscular Volume 91.4 fL (80.0-100.0); Monocytes # (auto) 0.5 10 ^3/uL (0-1.3); Neutrophils # (auto) 2.6 10 ^3/uL (1.6-8.6); Neutrophils % (auto) 44.3 % (37.0-80.0); Nucleated Red Blood Cells % 0.2 %; Red Blood Cells 4.35 10^6/uL (4.0-5.20); Red Cell Distribution Width 13.4 % (11.8-14.3); White Blood Cell 5.9 10^3/uL (4.4-10.8)
[2023-11-26 06:59] LABS: Alanine Aminotransferase 15 U/L (7-40); Albumin 4.4 g/dL (3.2-4.8); Alkaline Phosphatase 96 U/L (46-116); Anion Gap 8 (5-15); Aspartate Aminotransferase 11 U/L (13-40); BUN/Creatinine Ratio 18.3 (10.0-20.0); Blood Urea Nitrogen 17 mg/dL (9-23); Calcium 9.6 mg/dL (8.5-10.1); Carbon Dioxide 26 mmol/L (20-30); Chloride 107 mmol/L (98-107); Glucose 116 mg/dL (74-106); LDL Cholesterol 92 mg/dL (< 100); Magnesium 1.7 mg/dL (1.6-2.6); Potassium 3.8 mmol/L (3.5-5.1); Sodium 141 mmol/L (136-145); Triglycerides 159 mg/dL (< 150)
[2023-11-26 07:00] LABS: Bilirubin, Total 0.6 mg/dL (0.2-1.0); Cholesterol 160 mg/dL (< 200); HDL Cholesterol 46 mg/dL (40-59); Total Protein 6.8 g/dL (5.7-8.2)
[2023-11-26 08:00] VITALS: PULSE 58; PULSE 64; RESP 19; O2SAT 92
[2023-11-26 09:00] VITALS: BP 121/81; PULSE 69; RESP 19; TEMP 98.3; O2SAT 92
[2023-11-26 13:00] VITALS: BP 127/66; PULSE 70; RESP 17; TEMP 98.6; O2SAT 97
[2023-11-26] MEDS ORDERED: ASPI-325 PO (15:57)
[2023-11-26] MEDS ORDERED: CARV-216 PO (15:57)
[2023-11-26] MEDS ORDERED: ATOR20TA PO (15:57)
[2023-11-26] MEDS ORDERED: CEPH500C PO (16:00)
[2023-11-26 16:43] VITALS: BP 127/66; PULSE 70
[2023-11-26 17:00] VITALS: BP 145/94; PULSE 64; RESP 19; TEMP 97.7; O2SAT 93
== END 2023-11-26 17:55 | disposition home or self-care (01) | DRG 871 ==
LOC: ER 10:21 → TELE 14:31 → TELE-WESTW 23:15
PROVIDERS: ADMIT Nurse Practitioner Family; ATTEND Internal Medicine Geriatric Medicine
DX: A41.9 Sepsis, unspecified organism (principal); I21.A1 Myocardial infarction type 2; I50.43 Acute on chronic combined systolic (congestive) and diastolic (congestive) heart failure; N39.0 Urinary tract infection, site not specified; I11.0 Hypertensive heart disease with heart failure; I25.10 Atherosclerotic heart disease of native coronary artery without angina pectoris; D64.9 Anemia, unspecified; E66.9 Obesity, unspecified; E87.6 Hypokalemia; R73.9 Hyperglycemia, unspecified; E78.5 Hyperlipidemia, unspecified; E03.9 Hypothyroidism, unspecified; J44.89 Other specified chronic obstructive pulmonary disease; F32.A Depression, unspecified; F41.9 Anxiety disorder, unspecified; E86.0 Dehydration; Z90.710 Acquired absence of both cervix and uterus; Z98.61 Coronary angioplasty status; Z80.51 Family history of malignant neoplasm of kidney; Z82.49 Family history of ischemic heart disease and other diseases of the circulatory system; Z83.3 Family history of diabetes mellitus; Z68.29 Body mass index [BMI] 29.0-29.9, adult
CPT/HCPCS: 36415; 70450; 71045; 80048; 80053; 80061; 80307; 80320; 80329; 81001; 82140; 82550; 83036; 83605; 83690; 83735; 83880; 84443; 84484; 85025; 93005; 93306; 96361; 96365; 96375; 99291; G0378

== ENCOUNTER 2024-04-13 21:57 | Emergency (ER) | payer OTHER, MEDICAID ==
[~2024-04-13] VITALS: Ht 167.6 cm; Wt 81.0 kg
[~2024-04-13 21:57] MED LIST changes: -ALPR1TAB7; +ASPI-325 PO; +ATOR20TA PO; +CARV-216 PO; +CEPH500C PO; -ENOXAPARIN SOD 80 MG/0.8ML SYRINGE SC SCH; +GABA-1250 PO; -HYDR-2595; +LEVO25TA6 PO; +LISI10TA34 PO; -METO25TA5; +OMEP-448; +OXYC-963; +QUET50TA27 PO; +SERT-289 PO; -TEMA15CA
[2024-04-13 22:53] LABS: Urine Bacteria None Seen /hpf (None Seen)
[2024-04-13 22:55] LABS: Basophils # (auto) 0.1 10 ^3/uL (0-0.2); Basophils % (auto) 0.7 % (0.0-2.0); Eosinophils # (auto) 0 10 ^3/uL (0-0.8); Eosinophils % (auto) 0.5 % (0.0-7.0); Hematocrit 36.4 % (36.0-46.0); Hemoglobin 12.4 g/dL (12.2-16.2); Lymphocytes # (auto) 1.3 10 ^3/uL (0.4-5.4); Lymphocytes % (auto) 16.9 % (10.0-50.0); Mean Corpuscular Hemoglobin 31.6 pg (28.0-32.0); Mean Corpuscular Hgb Conc. 34.2 g/dL (32.0-36.0); Mean Corpuscular Volume 92.4 fL (80.0-100.0); Monocytes # (auto) 0.4 10 ^3/uL (0-1.3); Monocytes % (auto) 5.5 % (0.0-12.0); Neutrophils % (auto) 76.4 % (37.0-80.0); Platelet Count (auto) 305 10^3/uL (140-450); Red Blood Cells 3.94 10^6/uL (4.0-5.20); Red Cell Distribution Width 14.1 % (11.8-14.3); White Blood Cell 7.8 10^3/uL (4.4-10.8)
[2024-04-13 23:07] LABS: Urine Blood TRACE /uL (Negative); Urine Clarity Clear (Clear); Urine Color Yellow (Yellow); Urine Hyaline Cast FEW /lpf (0 - 2); Urine Mucus FEW (None Seen); Urine Protein, UAD 1+ (Negative); Urine Specific Gravity 1.033 (1.001-1.035); Urine Urobilinogen Normal (Negative); Urine WBC 9 /hpf (0 - 5)
[2024-04-13 23:07] LABS: Alanine Aminotransferase 28 U/L (7-40); Alkaline Phosphatase 116 U/L (46-116); Anion Gap 10 (5-15); Aspartate Aminotransferase 12 U/L (13-40); BUN/Creatinine Ratio 14.7 (10.0-20.0); Bilirubin, Total 0.9 mg/dL (0.2-1.0); Blood Urea Nitrogen 15 mg/dL (9-23); Carbon Dioxide 23 mmol/L (20-31); Chloride 109 mmol/L (98-107); Glucose 126 mg/dL (74-106); Sodium 142 mmol/L (136-145); Total Protein 7.6 g/dL (5.7-8.2)
[2024-04-13 23:37] LABS: Calcium 10.3 mg/dL (8.7-10.4)
[2024-04-14 00:11] VITALS: BP 154/103
[2024-04-14] MEDS ORDERED: NITROFURANTOIN 100 mg CAP PO ONE (00:32)
[2024-04-14] MEDS: NITROFURANTOIN 100 mg CAP PO ONE (00:34)
[2024-04-14] MEDS: METOCLOPRAMIDE HCL 10 MG TAB PO ONE (00:34)
[2024-04-14] MEDS: cloNIDine HCL 0.1 MG TAB PO ONE (00:34)
[2024-04-14 00:36] VITALS: PULSE 88; RESP 18; O2SAT 95
--- NOTE | 2024-04-14 00:37 | ED.PDOC ---
Back pain HPI HPI Comments This patient is a pleasant but obese 63-year-old female who arrives to the ED today for evaluation of bilateral flank pain concerns with intermittent nausea for the past few days. Patient states she believes she septic due to urinary tract concerns. Patient states that she has had flank pain in the past and it always resulted in sepsis. Patient has a history of hypertension, but does not use daily medication. At arrival, patient's blood pressure was 180/1 100+. Patient was not febrile. Patient states that nausea medications do not work well for her. Chief Complaint: Back Pain Time Seen by MD: 22:10 Primary Care Provider: LUL Reviewed Notes: Nurses Notes Allergies: Coded Allergies: Sulfa Antibiotics (Unverified Allergy, Unknown, 06/10/14) Home Meds Active Scripts Metoclopramide Hcl (Reglan) 10 Mg Tab, 10 MG PO Q8HP PRN, #15 TAB Prov:WILTON GROSS PAC 04/14/24 Nitrofurantoin Monohydrate Mac (Macrobid) 100 Mg Cap, 100 MG PO BID for 7 Days, #14 CAP Prov:WILTON GROSS PAC 04/14/24 Cephalexin Monohydrate (Cephalexin) 500 Mg Cap, 1 CAP PO TID, #21 CAP Prov:NATE PEACE MD 11/26/23 Atorvastatin Calcium (Lipitor) 20 Mg Tab, 1 TAB PO DAILY, #30 TAB 3 Refills Prov:NATE PEACE MD 11/26/23 Carvedilol (COREG) 12.5 Mg Tab, 12.5 MG PO Q12HR for 30 Days, #60 TAB Prov:NATE PEACE MD 11/26/23 Aspirin (Aspirin Low Dose) 81 Mg Tab, 81 MG PO DAILY for 100 Days, #100 TAB Prov:NATE PEACE MD 11/26/23 Reported Medications Oxycodone W/ Acetaminophen (Oxycodone/Acetaminophen 10-300 mg) 1 Tab Tab 11/24/23 Omeprazole (Omeprazole Dr) 40 Mg Cap 11/24/23 Sertraline HCl (Sertraline HCl) 50 Mg Tab, 1 TAB PO DAILY 11/24/23 Gabapentin (Gabapentin) 300 Mg Cap, CAP PO 11/24/23 Lisinopril (Lisinopril) 10 Mg Tab, 1 TAB PO DAILY 11/24/23 Levothyroxine Sodium (Levothyroxine Sodium) 25 Mcg Tab, 1 TAB PO DAILY 11/24/23 Quetiapine Fumerate (QUETIAPINE FUMARATE) 50 Mg Tab, TAB PO 11/24/23 Amlodipine Besylate (Amlodipine Besylate) 5 Mg Tab, #90 09/06/14 Information Source: Patient Mode of Arrival: Ambulatory Timing: Days Duration: Since onset Severity: Moderate Prehospital treatment: None Quality: Cramping, Sharp Past Medical History PAST MEDICAL HISTORY: Anemia, Anxiety, Asthma, CKF, Depression, HTN, Thyroid Surgical History: Appendectomy, Cholecystectomy, Hysterectomy 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: 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 Family History Family History: No family hx of DM, No family hx of Heart amanda, No family hx of HTN, No family hx of Stroke Social History Smoker: Non-Smoker Alcohol: Denies ETOH Use Drugs: Denies Drug Use Lives In: Home Constitutional: denies: chills, diaphoresis, fatigue, fever, malaise, sweats, weakness, others EENTM: denies: blurred vision, double vision, ear bleeding, ear discharge, ear drainage, ear pain, ear ringing, eye pain, eye redness, hearing loss, mouth pain, mouth swelling, nasal discharge, nose bleeding, nose congestion, nose pain, photophobia, tearing, throat pain, throat swelling, voice changes, others Respiratory: denies: cough, hemoptysis, orthopnea, SOB at rest, shortness of breath, SOB with excertion, stridor, wheezing, others Cardiovascular: denies: chest pain, dizzy spells, diaphoresis, Dyspnea on exertion, edema, irregular heart beat, left arm pain, lightheadedness, palpitations, PND, syncope, others Gastrointestinal: reports: nausea; denies: abdomen distended, abdominal pain, blood streaked bowels, constipated, diarrhea, dysphagia, difficulty swallowing, hematemesis, melena, poor appetite, poor fluid intake, rectal bleeding, rectal pain, vomiting, others Genitourinary: reports: flank pain; denies: abnormal vagina bleeding, burning, dyspareunia, dysuria, frequency, hematuria, incontinence, pain, , vagina discharge, urgency, others Neurological: denies: dizziness, fainting, headache, left sided numbness, left sided weakness, numbness, paresthesia, pre-existing deficit, right sided numbness, right sided weakness, seizure, speech problems, tingling, tremors, weakness, others Musculoskeletal: denies: back pain, gout, joint pain, joint swelling, muscle pain, muscle stiffness, neck pain, others Integumetry: denies: bruises, change in color, change in hair/nails, dryness, laceration, lesions, lumps, rash, wounds, others Allergic/Immunocompromised: denies: Difficulty Healing, Frequent Infections, Hives, Itching, others Hematologic/Lymphatic: denies: anemia, blood clots, easy bleeding, easy bruising, swollen glands, others Endocrine: denies: excessive hunger, excessive sweating, excessive thirst, excessive urination, flushing, intolerance to cold, intolerance to heat, unexplained weight gain, unexplained weight loss, others Psychiatric: denies: anxiety, bipolar disorder, depression, hopeless, panic disorder, schizophrenia, sleepless, suicidal, others Physical Exam General Appearance: Moderate Distress ([id number] distress due to flank pain concerns.), Normal HEENT: Normal ENT Inspection, Pharynx Normal, TMs Normal Neck: Full Range of Motion, Non-Tender, Normal, Normal Inspection Respiratory: Chest Non-Tender, Lungs Clear, No Accessory Muscle Use, No Respiratory Distress, Normal Breath Sounds Cardiovascular: No Edema, No JVD, No Murmur, No Gallop, Normal Peripheral Pulses, Regular Rate/Rhythm Breast Exam: Deferred Gastrointestinal: Other (Right-sided flank pain diffusely with left-sided significantly reduced. No signs of trauma. Patient states pain radiates towards her abdomen.) Genitalia: Deferred Pelvic: Deferred Rectal: Deferred Extremities: No calf tenderness, Normal capillary refill, Normal inspection, Normal range of motion, Non-tender, No pedal edema Neurologic: Alert, director career services II-XII nml as Tested, No Motor Deficits, Normal Affect, Normal Mood, No Sensory Deficits Cerebellar Function: Normal Reflexes: Normal Skin: Dry, Normal Color, Warm Lymphatic: No Adenopathy Was a procedure done? Was a procedure done?: No Back Pain Differential Dx Differential Diagnosis: Other (Pyelonephritis, UTI, chronic back pain, hypertension) X-Ray, Labs, Meds, VS Vital Signs Date Time Temp Pulse Resp B/P (MAP) Pulse Ox O2 Delivery O2 Flow Rate FiO2 04/14/24 01:42 142/76 04/14/24 00:36 88 18 95 Room Air 04/14/24 00:34 154/103 04/14/24 00:11 88 18 154/103 (120) 95 04/13/24 22:28 98.2 78 16 181/103 (129) 94 Lab Test 04/13/24 22:40 04/13/24 22:29 Range/Units White Blood Count 7.8 4.4-10.8 10^3/uL Red Blood Count 3.94 L 4.0-5.20 10^6/uL Hemoglobin 12.4 12.2-16.2 g/dL Hematocrit 36.4 36.0-46.0 % Mean Corpuscular Volume 92.4 80.0-100.0 fL Mean Corpuscular Hemoglobin 31.6 28.0-32.0 pg Mean Corpuscular Hemoglobin Concent 34.2 32.0-36.0 g/dL Red Cell Distribution Width 14.1 11.8-14.3 % Platelet Count 305 140-450 10^3/uL Mean Platelet Volume 8.2 6.9-10.8 fL Neutrophils (%) (Auto) 76.4 37.0-80.0 % Lymphocytes (%) (Auto) 16.9 10.0-50.0 % Monocytes (%) (Auto) 5.5 0.0-12.0 % Eosinophils (%) (Auto) 0.5 0.0-7.0 % Basophils (%) (Auto) 0.7 0.0-2.0 % Neutrophils # (Auto) 6.0 1.6-8.6 10 ^3/uL Lymphocytes # (Auto) 1.3 0.4-5.4 10 ^3/uL Monocytes # (Auto) 0.4 0-1.3 10 ^3/uL Eosinophils # (Auto) 0 0-0.8 10 ^3/uL Basophils # (Auto) 0.1 0-0.2 10 ^3/uL Nucleated Red Blood Cells 0.0 % Sodium Level 142 136-145 mmol/L Potassium Level 4.0 3.5-5.1 mmol/L Chloride Level 109 H 98-107 mmol/L Carbon Dioxide Level 23 20-31 mmol/L Anion Gap 10 5-15 Blood Urea Nitrogen 15 9-23 mg/dL Creatinine 1.02 0.550-1.02 mg/dL Glomerular Filtration Rate Calc 61 >90 mL/min BUN/Creatinine Ratio 14.7 10.0-20.0 Serum Glucose 126 H 74-106 mg/dL Lactic Acid Level 0.8 0.4-2.0 mmol/L Calcium Level 10.3 8.7-10.4 mg/dL Total Bilirubin 0.9 0.2-1.0 mg/dL Aspartate Amino Transferase (AST) 12 L 13-40 U/L Alanine Aminotransferase (ALT) 28 7-40 U/L Alkaline Phosphatase 116 46-116 U/L Total Protein 7.6 5.7-8.2 g/dL Albumin 5.0 H 3.2-4.8 g/dL Urine Color Yellow Yellow Urine Clarity Clear Clear Urine pH 6.0 5.0-9.0 Urine Specific [place] 1.033 1.001-1.035 Urine Protein 1+ H Negative Urine Ketones Trace Negative Urine Blood Trace H Negative /uL Urine Nitrite Negative Negative Urine Bilirubin Negative Negative Urine Urobilinogen Normal Negative mg/dL Urine Leukocyte Esterase 2+ Negative /uL Urine RBC 4 0 - 4 /hpf Urine WBC 9 0 - 5 /hpf Urine Squamous Epithelial Cells Few <5 /hpf Urine Bacteria None seen None Seen /hpf Urine Hyaline Casts Few 0 - 2 /lpf Urine Mucus Few None Seen Urine Glucose Normal Normal mg/dL Current Medications Medications (Trade) Dose Ordered Sig/Emily Route Start Time Stop Time Status Last Admin Clonidine HCl (Catapres Tablet) 0.2 mg ONCE ONCE PO 04/13/24 22:45 04/13/24 22:46 DC 04/14/24 00:34 Metoclopramide HCl (Reglan Tablet) 10 mg ONCE ONCE PO 04/13/24 22:45 04/13/24 22:46 DC 04/14/24 00:34 Nitrofurantoin Macrocrystals (Macrobid) 100 mg ONCE ONCE PO 04/13/24 23:45 04/13/24 23:46 DC 04/14/24 00:34 X-Ray, Labs, Meds, VS Comment All studies performed the ED were evaluated by me personally. Serum laboratories were relatively unremarkable, but urine results were positive for UTI. Patient's EKG reveals sinus rhythm with a rate of 72, GA interval of 173 and a QT interval of 408. Advised the patient that I will send her home with new antibiotic in hopes that her pharmacy we will be able to fill it and that it is within her insurance confines. Time of 1ST Reevaluation: 01:40 Reevaluation 1ST: Improved Consultation: PCP Patient Education/Counseling: Diagnosis, Treatment Family Education/Counseling: Diagnosis, Treatment Departure 1 Departure Time of Disposition: 01:41 Impression: Primary Impression: UTI (urinary tract infection) Additional Impression: Hypertension Disposition: 01 HOME / SELF CARE / HOMELESS Condition: Stable Additional Instructions: Advised patient utilize antibiotics as directed until completion additionally, patient needs to follow up with the primary care provider for discussions related to her blood pressure concerns. It appears the patient has hypertension and needs to be on daily medication. e-Prescriptions Metoclopramide Hcl (Reglan) 10 Mg Tab 10 MG PO Q8HP PRN, #15 TAB Prov: WILTON GROSS PAC 04/14/24 Nitrofurantoin Monohydrate Mac (Macrobid) 100 Mg Cap 100 MG PO BID for 7 Days, #14 CAP Prov: WILTON GROSS PAC 04/14/24 Discharged With: Self, Friend Critical Care Note Critical Care Time?: No Stability Stability form required: No Heart Score Heart Score: Heart Score Response (Comments) Value History Slightly Suspicious 0 EKG Normal 0 Age 45-64 1 Risk Factors 1 or 2 risk factors 1 Troponin N/A 0 Total 2 WILTON GROSS PAC Apr 14, 2024 00:37
[2024-04-14] MEDS ORDERED: NITR-87 PO (01:43)
[2024-04-14] MEDS ORDERED: METO-281 PO (01:43)
--- NOTE | 2024-04-16 03:47 | ECG ---
[facility] Test Date: 2024-04-14 Test Time: 01:19:04 Pat Name: BREEZY PRESLEY Department: ER Room: Gender: F Shock Absorption Floor Layer: LEATHA : 1960 Requested By: WILTON GROSS Order Number: [id number] Reading MD: Measurements Intervals [place] Rate: 72 P: 52 RI: 173 QRS: 54 QRSD: 95 T: 12 QT: 408 QTc: 447 Interpretive Statements Sinus rhythm Please click the below link to view image of tracing.
== END 2024-04-14 01:52 | disposition home or self-care (01) ==
LOC: ER 21:57
DX: N39.0 Urinary tract infection, site not specified (principal); I12.9 Hypertensive chronic kidney disease with stage 1 through stage 4 chronic kidney disease, or unspecified chronic kidney disease; N18.9 Chronic kidney disease, unspecified; F41.9 Anxiety disorder, unspecified; F32.A Depression, unspecified; J45.909 Unspecified asthma, uncomplicated; E66.9 Obesity, unspecified; Z68.28 Body mass index [BMI] 28.0-28.9, adult; Z86.2 Personal history of diseases of the blood and blood-forming organs and certain disorders involving the immune mechanism; Z90.49 Acquired absence of other specified parts of digestive tract; Z90.710 Acquired absence of both cervix and uterus; Z88.2 Allergy status to sulfonamides; Z79.82 Long term (current) use of aspirin; Z79.899 Other long term (current) drug therapy
CPT/HCPCS: 36415; 80053; 81001; 83605; 85025; 93005; 99284; J8597